=== PATIENT | male | born 1980 | race Two or more races ===

== ENCOUNTER 2024-01-13 05:40 | Day surgery (SDC) | payer OTHER ==
[2024-01-05 11:11] LABS: HEMATOCRIT 47.1 % (39.0-48.0); HEMOGLOBIN 16.3 g/dL (13-16.00); MEAN CELL VOLUME 80.3 fL (80.0-100.00); MEAN CORPUSCULAR HEMOGLOBIN 27.7 pg (27.00-32.0); MEAN CORPUSCULAR HGB CONC 34.5 g/dl (32.0-36.0); PLATELET COUNT 263 K/uL (150-450); RED BLOOD COUNT 5.87 M/uL (4.00-6.00); RED CELL DISTRIBUTION WIDTH 14.9 % (11.5-14.5)
[2024-01-05 11:15] LABS: PH,URINE 5.5 (5.0-8.0); URINE APPEARANCE Clear; URINE BILIRRUBIN Negative (NEGATIVE); URINE BLOOD Negative; URINE COLOR Yellow; URINE GLUCOSE Negative (NEGATIVE); URINE KETONE Negative (NEGATIVE); URINE LEUKOCYTE Negative; URINE NITRATE Negative; URINE PROTEIN Negative (NEGATIVE); URINE UROBILINOGEN 0.2 E.U./dl
[2024-01-05 11:16] LABS: URINE BACTERIA 8.8 uL (0.0-1933)
[2024-01-05 11:38] LABS: INR 0.99; PROTHROMBIN TIME 10.8 SECONDS (9.0-11.5)
[2024-01-05 11:40] LABS: URINE RBC 1.6 uL (0.0-20.8); URINE WBC 1.6 uL (0.0-23.2)
[2024-01-05 11:41] LABS: URINE EPITHELIAL CELLS 1.2 uL (0.0-38.8)
[2024-01-05 12:15] LABS: CALCIUM 9.7 mg/dL (8.5-10.1); CREATININE SERUM 1.11 mg/dL (0.70-1.30); GFR 71.64; POTASSIUM 4.18 mEq/L (3.5-5.1)
[~2024-01-13 05:40] MED LIST: LEVOTHYROXINE25 MCG
[2024-01-13] MEDS ORDERED: TYLENOL ARTHRI650 MG PO (07:49)
[2024-01-13] MEDS ORDERED: TRAMADOL HCL50 MG PO (07:49)
[2024-01-13] MEDS ORDERED: KETO10TA2 PO (07:49)
[2024-01-13] MEDS ORDERED: MIRALAX17 GM PO (07:49)
[2024-01-13] MEDS ORDERED: BUPIVACAINE HCL 30 ML VIAL IJ ONE ×2 (08:15→08:30)
[2024-01-13] MEDS ORDERED: CEFAZOLIN SODIUM 1,000 MG VIAL IV ONE (08:15)
[2024-01-13] MEDS ORDERED: SUGAMMADEX SODIUM 200 MG/2 ML VIAL IV ONE (08:15)
[2024-01-13] MEDS ORDERED: KETOROLAC TROMETHAMINE 30 MG VIAL IV ONE (08:45)
[2024-01-13] MEDS ORDERED: MORPHINE SULFATE 4 MG/ML VIAL IV ONE (10:20)
== END 2024-01-13 11:55 | disposition home or self-care (01) ==
LOC: CIR.AMB 05:40
PROVIDERS: ATTEND Surgery
DX: K42.0 Umbilical hernia with obstruction, without gangrene (principal)
CPT/HCPCS: 49594; C1781